=== PATIENT | female | born 2005 | race Caucasian/White ===

== ENCOUNTER 2025-08-28 16:44 | Emergency (ER) | payer OTHER, SELFPAY ==
[2025-08-28 17:48] LABS: Absolute Lymphocytes (CBC) 2.7 K/uL (0.7-4.9); Hematocrit 39.0 % (36.0-45.0); Hemoglobin 13.0 g/dL (12.0-15.0); MCH 27.4 pg (27.0-35.0); MCHC 33.3 g/dL (32.0-36.0); MCV 82.5 fL (80-100); MPV 8.1 fL (7.6-11.3); Nucleated RBC Absolute Count 0.0 (0-0); Nucleated Red Blood Cells % 0.1 % (0-0); RBC Red Blood Cell Count 4.73 M/uL (3.86-4.86); White Blood Count 11.90 thou/uL (4.3-10.9)
[2025-08-28 18:00] LABS: METHAMPHETAM NEGATIVE (NEGATIVE); THC Cannibis NEGATIVE (NEGATIVE)
[2025-08-28 18:08] LABS: ALT/SGPT 21 U/L (13-56); Albumin 3.4 g/dL (3.4-5.0); Albumin/Globulin Ratio 0.8 (1.1-1.8); Alkaline Phosphatase 80 U/L (45-117); Anion Gap 11.7 mEq/L (5.0-15.0); BUN Blood Urea Nitrogen 10 mg/dL (7-18); Globulin 4.1 g/dL (2.3-3.5); Glucose Level 163 mg/dL (74-106); Potassium 3.7 mEq/L (3.5-5.1)
[2025-08-28 18:18] LABS: AST/SGOT < 10 U/L (15-37); Bilirubin Indirect, Calculated 0.0 mg/dL (0.2-0.8)
--- NOTE | 2025-08-28 18:25 | ER ---
Nurse's Notes [facility] Name: Loreto Mandujano Age: 20 yrs Sex: Female : 2005 Arrival Date: 08/28/2025 Time: 16:44 Bed 19 Private MD: Diagnosis: Suicidal ideations Presentation: 08/28 17:00 Chief complaint: Patient states: SHE HAS FELT MANIC FOR A WHILE NOW. STOPPED TAKING dd2 MOOD STABILIZER AND DEPRESSION MEDICATIONS IN APRIL. BEGAN HAVING THOUGHTS OF "WHAT WOULD HAPPEN IF I WAS " THEN BEGAN THINKING "MAYBE I SHOULD " AND NOW FEELS THE THOUGHTS OF HARMING HERSELF. PT DENIES HAVING A SPECIFIC PLAN BUT REPORTS THAT IF SHE ACTED ON IT, SHE HAS DIFFERENT WAYS TO GO THROUGH WITH IT. Coronavirus screen: At this time, the client does not indicate any symptoms associated with coronavirus-19. Ebola Screen: No symptoms or risks identified at this time. Initial Sepsis Screen: Does the patient meet any 2 criteria? No. Patient's initial sepsis screen is negative. Does the patient have a suspected source of infection? No. Patient's initial sepsis screen is negative. Risk Assessment: Do you want to hurt yourself or someone else? Patient reports desire/thoughts of hurting themselves or someone else. Provider notified. Onset of symptoms is unknown. 17:00 Method Of Arrival: Ambulatory dd2 17:00 Acuity: SYL 2 dd2 Triage Assessment: 17:07 General: Appears in no apparent distress. well developed, well nourished, Behavior is dd2 cooperative, appropriate for age, anxious. Pain: Denies pain. 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 - Infectious Disease History:: Denies. - Social history:: Smoking status: Patient reports the use of cigarette tobacco products, smokes one-half pack cigarettes per day. Screenin:21 [facility] ED Fall Risk Assessment (Adult) History of falling in the last 3 months, jp5 including since admission No falls in past 3 months (0 pts) Confusion or Disorientation No (0 pts) Intoxicated or Sedated No (0 pts) Impaired Gait No (0 pts) Mobility Assist Device Used No (0 pt) Altered Elimination No (0 pt) Score/Fall Risk Level 0 - 2 = Low Risk Oriented to surroundings, Maintained a safe environment, Educated pt \\T\\ family on fall prevention, incl call for assistance when getting out of bed, Assessed \\T\\ reinforced patient's understanding of fall precautions, Provided non-skid footwear, Hourly rounding (assess needs \\T\\ fall precautionary measures) done, Used ambulatory aids as needed (educated on \\T\\ assisted with), Used gait belt as appropriate. Abuse screen: Denies threats or abuse. Denies injuries from another. Nutritional screening: No deficits noted. Tuberculosis screening: No symptoms or risk factors identified. Assessment: 19:26 General: Appears in no apparent distress. comfortable, Behavior is calm, cooperative, cp4 appropriate for age. Pain: Denies pain. Neuro: Level of Consciousness is awake, alert, obeys commands, Oriented to person, place, time, situation. Cardiovascular: Patient's skin is warm and dry. Respiratory: Airway is patent Respiratory effort is even, unlabored. GI: No signs and/or symptoms were reported involving the gastrointestinal system. : No signs and/or symptoms were reported regarding the genitourinary system. EENT: No signs and/or symptoms were reported regarding the EENT system. Derm: No signs and/or symptoms reported regarding the dermatologic system. Musculoskeletal: No signs and/or symptoms reported regarding the musculoskeletal system. 20:30 Reassessment: Patient appears in no apparent distress at this time. Patient and/or cp4 family updated on plan of care and expected duration. Pain level reassessed. Patient is alert, oriented x 3, equal unlabored respirations, skin warm/dry/pink. 21:21 Reassessment: Patient appears in no apparent distress at this time. Patient and/or cp4 family updated on plan of care and expected duration. Pain level reassessed. Patient is alert, oriented x 3, equal unlabored respirations, skin warm/dry/pink. 22:48 Reassessment: Patient appears in no apparent distress at this time. Patient and/or cp4 family updated on plan of care and expected duration. Pain level reassessed. Patient is alert, oriented x 3, equal unlabored respirations, skin warm/dry/pink. 23:30 Reassessment: Patient appears in no apparent distress at this time. Patient and/or cp4 family updated on plan of care and expected duration. Pain level reassessed. Patient is alert, oriented x 3, equal unlabored respirations, skin warm/dry/pink. 08/29 00:30 Reassessment: Patient appears in no apparent distress at this time. Patient and/or cp4 family updated on plan of care and expected duration. Pain level reassessed. Patient is alert, oriented x 3, equal unlabored respirations, skin warm/dry/pink. 01:39 Reassessment: Patient appears in no apparent distress at this time. Patient and/or cp4 family updated on plan of care and expected duration. Pain level reassessed. Patient is alert, oriented x 3, equal unlabored respirations, skin warm/dry/pink. 01:40 Reassessment: [facility] Screener in room with patient. cp4 02:30 Reassessment: Patient appears in no apparent distress at this time. Patient and/or cp4 family updated on plan of care and expected duration. Pain level reassessed. Patient is alert, oriented x 3, equal unlabored respirations, skin warm/dry/pink. 03:30 Reassessment: Patient appears in no apparent distress at this time. Patient and/or cp4 family updated on plan of care and expected duration. Pain level reassessed. Patient is alert, oriented x 3, equal unlabored respirations, skin warm/dry/pink. 04:42 Reassessment: Patient appears in no apparent distress at this time. Patient and/or cp4 family updated on plan of care and expected duration. Pain level reassessed. Patient is alert, oriented x 3, equal unlabored respirations, skin warm/dry/pink. 07:00 General: Appears in no apparent distress. comfortable, Behavior is calm, cooperative, iw appropriate for age. Neuro: Level of Consciousness is awake, alert, obeys commands, Oriented to person, place, time, situation, Moves all extremities. Full function. Cardiovascular: Patient's skin is warm and dry. Respiratory: Respiratory effort is even, unlabored, Respiratory pattern is regular, symmetrical. Derm: Skin is pink, warm \\T\\ dry. normal. Musculoskeletal: Range of motion: intact in all extremities. 07:37 Reassessment: Called report to ARJUN Salguero at [facility]. Acceptance pending zm upon facility discharges, told we were third on list. 07:53 Reassessment: Acceptance from [facility], called report to ARJUN Chew. zm 16:56 Reassessment: belongings left in security upon transfer to [facility]. [facility] will 1 send a loved one to pickle maker her belongings for her. Psych: 08/28 17:21 [place] Suicide Severity Screening: In the past month, have you wished you were jp5 or wished you could go to sleep and not wake up? Patient responds "yes." Based off the client's responses additional C-SSRS screening is required. "In the past month, have you actually had any thoughts of killing yourself?" Patient responds "yes." Based off the client's response additional [place] suicide severity screening questions to be further documented on paper forms. "In your lifetime, have you ever done anything, started to do anything, or prepared to do anything to end your life?" Patient responds "yes." Patient reports suicidal intent within 3 past months. Subjective: Patient's mood is sad, Having thoughts of suicide. Denies suicidal plan. Objective: Patient is cooperative, Speech is normal. Interventions: Removed personal items and placed in bag. Patient placed in hospital gown. Searched person for dangerous items. Urine collected and sent for urine drug test. Belonging list filled out. Safety Checks: Personal items have been removed. Pt denies substance abuse. Commitment: Patient will be a voluntary commitment. Vital Signs: 17:00 BP 143 / 92; Pulse 117; Resp 16; Temp 98.2; Pulse Ox 98% ; Weight 99.79 kg; Height 5 dd2 ft. 3 in. ; Pain 0/10; 08/29 06:59 BP 126 / 83; Pulse 90; Resp 18; Pulse Ox 98% on R/A; oe 07:35 BP 118 / 83; Pulse 78; Resp 16; Temp 98; Pulse Ox 97% on R/A; iw 08:50 BP 120 / 79; Pulse 74; Resp 16; Temp 98.1(O); Pulse Ox 98% ; iw 08/28 17:00 Body Mass Index 38.97 (99.79 kg, 160.02 cm) dd2 08/28 17:00 Pain Scale: Adult dd2 ED Course: 08/28 16:47 Patient arrived in ED. im 16:52 Kristina Machado FNP-C [facility]. kb 16:52 Elvis Yepez MD is Attending Physician. kb 17:07 Triage completed. dd2 17:07 Arm band placed on right wrist. dd2 17:21 Darlin Wilson, RN is Primary Nurse. jp5 17:21 Bed in low position. Call light in reach. Side rails up X 1. Provided Education on: jp5 MENTAL HEALTH PROCESS . 17:21 No provider procedures requiring assistance completed. jp5 17:35 Acetaminophen Sent. jp5 17:36 Basic Metabolic Panel Sent. jp5 17:36 CBC with Diff Sent. jp5 17:36 ETOH Level Sent. jp5 17:36 Hepatic Function Sent. jp5 17:36 Test, Urine Sent. jp5 17:36 Salicylate Sent. jp5 17:36 Urine Drug Screen Sent. jp5 17:42 Initial lab(s) drawn, by laborer adjustable steel joist, sent to lab. Inserted saline lock: 20 gauge in right pm7 hand, using aseptic technique. Blood collected. Flushed with 10 mL NS. 17:43 Urine collected: clean catch specimen, sent to lab. pm7 19:05 Report given to HEALTHCARE TRANSLATOR RN. jp5 19:25 Lorraine Whalen is Primary Nurse. cp4 23:26 Contacted [facility] for evaluation. rv1 08/29 00:39 intact, bleeding controlled, No redness/swelling at site. Pressure dressing applied, cp4 Removed per patient request. 03:58 Re-faxed pt clinical's to [facility], [facility], [facility]. rv1 07:17 re faxed chart to [facility]. bd 07:23 faxed chart to [facility]. bd 07:27 faxed chart to [facility]. bd 07:55 pt accepted in transfer to [facility] by dr angeles admin approval given by Jeevan Atkins bd 08:53 Primary Nurse role handed off by Lorraine Whalen iw 08:53 Kati Dong, RN is Primary Nurse. iw Administered Medications: No medications were administered Medication: 08/28 17:21 VIS not applicable for this client. jp5 Outcome: 18:25 ER care complete, transfer ordered by . kb 08/29 08:52 Transferred by ground EMS [facility]af[facility]. Transfer form completed. X-rays sent w/ patient. iw Note: to [facility]: good Discharge instructions given to patient, Instructed on the need for transfer, Demonstrated understanding of instructions, 08:53 Patient left the ED. iw Signatures: Kristina Machado, COMPUTER SCIENCES PROFESSOR-C COMPUTER SCIENCES PROFESSOR-Ckb Mary Helton Irene, RN RN iw Fab Bustamante Lynsay RN RN ll1 Danuta Hickey, RN RN Nina Hartley rv1 Ankita England Christina cp4 Darlin Wilson RN RN jp5 JOSE PALMER RN RN dd2 Cheryl Maria pm7 Corrections: (The following items were deleted from the chart) 01:42 01:40 Reassessment: cp4 cp4 01:42 01:40 Reassessment: cp4 cp4
--- NOTE | 2025-08-28 18:25 | EDPHYS ---
Physician Documentation [facility] Name: Loreto Mandujano Age: 20 yrs Sex: Female : 2005 Arrival Date: 08/28/2025 Time: 16:44 Bed 19 Private MD: ED Physician Elvis Yepez HPI: 08/28 18:22 This 20 yrs old Female presents to ER via Ambulatory with complaints of Mental health kb crisis, Suicidal Ideation. 18:22 Pt is a 20 year old female who presents for suicidal ideations. States she started with kb thinking about what it would be like if she was and lately has been having thoughts that it would be better if she was . States she doesn't have an exact plan at this time, but once she makes up her mind she would have the means to attempt. Pt believes she needs to go to an inpatient psychiatric facility. . 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 - Infectious Disease History:: Denies. - Social history:: Smoking status: Patient reports the use of cigarette tobacco products, smokes one-half pack cigarettes per day. ROS: 17:02 Constitutional: As per HPI kb Exam: 17:03 Constitutional: This is a well developed, well nourished patient who is awake, alert, kb and in no acute distress. Head/Face: Normocephalic, atraumatic. ENT: Moist Mucous membranes Cardiovascular: Regular rate Respiratory: Respirations even and unlabored. No increased work of breathing. Talking in full sentences Abdomen/GI: Soft, non-tender. No distention Skin: Warm, dry with normal turgor. Normal color. MS/ Extremity: Pulses equal, no cyanosis. Neurovascular intact. Full, normal range of motion. Neuro: Awake and alert, GCS 15, oriented to person, place, time, and situation. 17:03 Psych: Behavior/mood is pleasant, cooperative, Affect is calm, Oriented to person, place, time, Patient having thoughts of suicide. Denies suicidal plan. Vital Signs: 17:00 BP 143 / 92; Pulse 117; Resp 16; Temp 98.2; Pulse Ox 98% ; Weight 99.79 kg; Height 5 dd2 ft. 3 in. ; Pain 0/10; 08/29 06:59 BP 126 / 83; Pulse 90; Resp 18; Pulse Ox 98% on R/A; oe 07:35 BP 118 / 83; Pulse 78; Resp 16; Temp 98; Pulse Ox 97% on R/A; iw 08:50 BP 120 / 79; Pulse 74; Resp 16; Temp 98.1(O); Pulse Ox 98% ; iw 08/28 17:00 Body Mass Index 38.97 (99.79 kg, 160.02 cm) dd2 08/28 17:00 Pain Scale: Adult dd2 MDM: 08/28 16:52 Medical Screening Exam initiated kb 18:22 Differential diagnosis: acute stress reaction, depression, bipolar, suicidal ideations. kb Data reviewed: vital signs, nurses notes. Consideration of Admission/Observation Escalation of care including admission/observation considered. pt will be transferred for inpatient psychiatric treatment. Counseling: I had a detailed discussion with the patient and/or guardian regarding the historical points, exam findings, and any diagnostic results supporting the discharge/admit diagnosis, lab results, the need to transfer to another facility, [facility] does not immediately have the required specialist. 08/29 02:37 Differential diagnosis: drug withdrawal. acute psychotic break, depression, psychosis sp4 secondary to non-compliance. Management of patient was discussed with the following: Head Of Measurement & Insights: Discussion took place with career consultant from [facility] agents. [facility] career consultant recommends transfer to psychiatric hospital for stabilization.. 08/28 17:02 Order name: Acetaminophen; Complete Time: 18:22 kb 08/28 17:02 Order name: Basic Metabolic Panel; Complete Time: 18:22 kb 08/28 17:02 Order name: CBC with Diff; Complete Time: 17:51 kb 08/28 17:02 Order name: ETOH Level; Complete Time: 18:09 kb 08/28 17:02 Order name: Hepatic Function; Complete Time: 18:22 kb 08/28 17:02 Order name: Test, Urine; Complete Time: 17:51 kb 08/28 17:02 Order name: Salicylate; Complete Time: 18:22 kb 08/28 17:02 Order name: Urine Drug Screen; Complete Time: 18:04 kb 08/28 17:02 Order name: IV Saline Lock; Complete Time: 17:35 kb 08/28 17:02 Order name: Labs collected and sent; Complete Time: 17:35 kb 08/28 17:02 Order name: Suicide Screening ([place]); Complete Time: 17:35 kb Administered Medications: No medications were administered Disposition Summary: 08/28/25 18:25 Transfer Ordered Notes: Transfer Location: Psych Facility kb Reason: Higher level of care kb Condition: Stable kb Problem: new kb Symptoms: are unchanged kb Accepting Physician: (08/29/25 08:53) mauro Diagnosis - Suicidal ideations kb Forms: - Medication Reconciliation Form kb - SBAR form kb Signatures: Dispatcher [employer] EDKristina Henry FNP-C LISA-Kati Roman, RN RN Cecilio Rangel MD MD sp4 JOSE PALMER RN RN dd2 Corrections: (The following items were deleted from the chart) 08:53 08/28 18:25 Dr juárez iw
[2025-08-29 15:58] VITALS: BP 118/83; TEMP 98; O2SAT 97
== END 2025-08-29 08:53 ==
LOC: ER 16:44
DX: R45.851 Suicidal ideations (principal); F17.210 Nicotine dependence, cigarettes, uncomplicated
CPT/HCPCS: 36415; 80048; 80076; 80143; 80179; 80307; 81025; 82077; 85025; 99285